=== PATIENT | male | born 1950 | race Caucasian/White ===

== ENCOUNTER 2016-07-27 09:35 | Day surgery (SDC) | payer MEDICARE ==
[~2016-07-27 09:35] MED LIST: CEFAZOLIN SODIUM 2 GRAM PREMIX 100 ML IV ONE; CEFAZOLIN SODIUM 2 GRAM PREMIX 100 ML IV PRN; IV START KIT ONE; LACTATED RINGERS 1,000 ML ONE
[2016-07-27] MEDS ORDERED: FENTANYL 100 MCG/2 ML VIAL ONE ×2 (11:22→12:10)
[2016-07-27] MEDS ORDERED: BUPIVACAINE 0.5% W/EPI SDV 30 ML VIAL ONE (11:39)
[2016-07-27] MEDS ORDERED: CEFAZOLIN SODIUM 1,000 MG VIAL ONE (11:39)
[2016-07-27] MEDS ORDERED: SODIUM CHLORIDE 0.9% FLUSH 10 ML ONE (11:39)
[2016-07-27] MEDS ORDERED: KETOROLAC TROMETHAMINE 30 MG/ML 1 ML VIAL ONE (11:46)
[2016-07-27] MEDS ORDERED: PROPOFOL 20 ML IV ONE (11:46)
[2016-07-27] MEDS ORDERED: ONDANSETRON 4 MG/2ML 2 ML VIAL ONE (11:46)
[2016-07-27] MEDS ORDERED: ATROPINE SULFATE 0.4 MG/1 ML VIAL IV PRN (12:00)
[2016-07-27] MEDS ORDERED: HYDRALAZINE HCL 20 MG/1 ML VIAL IV PRN (12:00)
[2016-07-27] MEDS ORDERED: PROMETHAZINE HCL 25 MG/ML VIAL IM PRN (12:00)
[2016-07-27] MEDS ORDERED: MORPHINE SULFATE 4 MG/ML SYRINGE IV PRN (12:00)
[2016-07-27] MEDS ORDERED: NALOXONE HCL 0.4 MG/ML VIAL IV PRN (12:00)
[2016-07-27] MEDS ORDERED: MEPERIDINE 25 MG/ML SYRINGE IV PRN (12:00)
[2016-07-27] MEDS ORDERED: ONDANSETRON 4 MG/2ML 2 ML VIAL IV PRN ×2 (12:00→13:09)
[2016-07-27] MEDS ORDERED: LACTATED RINGERS 1,000 ML IV SCH (12:00)
[2016-07-27] MEDS ORDERED: ROCURONIUM BROMIDE 10 MG/ML DOSE IV ONE (12:15)
[2016-07-27] MEDS ORDERED: GLYCOPYRROLATE 0.2 MG/ML 1ML VIAL ONE (12:24)
[2016-07-27] MEDS ORDERED: NEOSTIGMINE METHYLSULFATE 1 MG/ML DOSE ONE (12:24)
[2016-07-27] MEDS ORDERED: KETOROLAC TROMETHAMINE 30 MG/ML 1 ML VIAL IV PRN (13:09)
[2016-07-27] MEDS ORDERED: MORPHINE SULFATE 2 MG/ML SYRINGE IV PRN (13:09)
[2016-07-27] MEDS ORDERED: OXYCODONE HCL 5 MG TABLET PO PRN (13:09)
[2016-07-27] MEDS ORDERED: OXYCODONE HCL 5 MG TABLET ONE (14:00)
--- NOTE | 2016-07-27 17:49 | OP ---
NAIDA QIU DATE OF OPERATION: July 27, 2016 PREOPERATIVE DIAGNOSIS: Incarcerated incisional hernia. POSTOPERATIVE DIAGNOSIS: Incarcerated incisional hernia. PROCEDURE: REPAIR OF INCARCERATED INCISIONAL HERNIA WITH MEDIUM VENTRALEX MESH PATCH. SURGEON: Sudarshan Schilling M.D. GUARD IMMIGRATION: Mac Youngblood ANESTHESIA: General anesthesia by Maria Del Carmen Garvin C.R.N.A. INDICATIONS: This is a 66-year-old male who has a hernia in the epigastric region at the inferior aspect of a prior sternotomy scar. I suspect that he had intraabdominal entry during cardiac surgery and this has progressed into a hernia. He presents now for elective repair. DESCRIPTION: With informed consent, he was taken to the operating room and was laid supine on the operating room table. General anesthesia was administered. The upper abdomen was prepped and draped in a sterile fashion. Local anesthetic was administered in the epigastric region. I incised a prior scar and extended this inferiorly. This was on the medial aspect of the palpable hernia. I dissected the hernia sac free from the subcutaneous fat. I excised the hernia sac at the level of the fascia. There was omentum within. Some of the omentum was actually attached to the hernia sac and this was . Eventually I was able to dissect and reduce all the omentum into the abdominal cavity. It appeared that this hernia had actually occurred about the area of the falciform ligament. I was able to feel along the anterior abdominal wall with my index finger and most of the falciform ligament had been already divided. The defect was basically in a transverse fashion. I decided to place a Ventralex mesh patch. This was placed intraabdominally. Care was taken to insure that there were no visceral structures between the mesh and the abdominal wall. We made sure the mesh laid flat. It was secured circumferentially with #2-0 Vicryl. The tails were cut away. The wound was irrigated. We did undermine some of the subcutaneous fat off of the fascia to allow it to be reapproximated to attempt to obliterate the space previously occupied by the hernia sac. The midline wound was then closed with a running subcuticular #4-0 Monocryl. Mastisol and SteriStrips were placed. Sterile dressing was applied. A binder was applied. He tolerated the procedure and was taken to the recovery room in stable condition. Note was made that needle, instrument and lap counts were reported as correct at time of closure. Cc: Jaspal Burnham M.D.
== END 2016-07-27 14:58 | disposition home or self-care (01) ==
LOC: SDC 09:35
PROVIDERS: ATTEND Surgery
PROC: 0WUF0JZ Supplement Abdominal Wall with Synthetic Substitute, Open Approach (ICD-10-PCS; principal; 2016-07-27)
DX: K43.0 Incisional hernia with obstruction, without gangrene (principal); R01.1 Cardiac murmur, unspecified; I38 Endocarditis, valve unspecified; Z95.2 Presence of prosthetic heart valve; Z79.01 Long term (current) use of anticoagulants; I10 Essential (primary) hypertension; E78.5 Hyperlipidemia, unspecified; G47.30 Sleep apnea, unspecified; Z79.82 Long term (current) use of aspirin
CPT/HCPCS: 49561; 49568; J0690 ×2; J3010 ×2; A9270; J1885; J2405; J7120